=== PATIENT | female | born 1995 | race Caucasian/White ===

== ENCOUNTER 2023-12-27 20:50 | Emergency (ER) | payer BC ==
[~2023-12-27] VITALS: Ht 167.6 cm; Wt 62.0 kg
[2023-12-27 21:27] VITALS: O2SAT 99
[2023-12-27] MEDS: TETANUS, DIPHTHERIA, PERTUSSIS VAC/PF 0.5ML (>10YR OLD) IM ONE (22:00)
[2023-12-27] MEDS ORDERED: AMOX1TAB16 MT (22:42)
[2023-12-27 22:55] VITALS: BP 110/73; PULSE 65; RESP 18; TEMP 36.83628; O2SAT 100
== END 2023-12-27 22:55 | disposition home or self-care (01) ==
LOC: ER 20:50
DX: S81.852A Open bite, left lower leg, initial encounter (principal); W54.0XXA Bitten by dog, initial encounter; Y93.89 Activity, other specified; Y92.89 Other specified places as the place of occurrence of the external cause; Y99.8 Other external cause status
CPT/HCPCS: 90471; 90715; 99283